=== PATIENT | female | born 1935 | race Caucasian/White ===

== ENCOUNTER 2021-01-04 10:36 | Emergency (ER) | payer MEDICARE ==
[~2021-01-04] VITALS: Ht 165.1 cm; Wt 72.7 kg
[~2021-01-04 10:36] MED LIST: AMLO2.5T2 PO; ASPI-529 PO; ATOR40TA7 PO; CHOL10002 PO; LEVO112T25 PO; LOSA50TA3 PO; MULT-1074 PO; OM-31CAP9 PO; VITAMIN E PO
--- NOTE | 2021-01-04 11:01 | NUR ---
CALL DAUGHTER CHARLOTTE FOR RIDE HOME: [phone]
[2021-01-04 12:08] LABS: BASOPHILS # (AUTO) 0.1 X10'3 (0-0.2); EOSINOPHILS # (AUTO) 0.1 X10'3 (0-0.9); HEMOGLOBIN 13.9 g/dl (12.0-16.0); LYMPHOCYTES # (AUTO) 2.1 X10'3 (1.1-4.8); NEUTROPHILS # (AUTO) 5.9 X10'3 (1.8-7.7)
[2021-01-04 12:10] LABS: BASOPHILS % (AUTO) 1.2 % (0-1); EOSINOPHILS % (AUTO) 0.9 % (0-6); HEMATOCRIT 41.7 % (35.0-45.0); MEAN CORPUSCULAR HGB CONC 33.4 g/dL (33.0-36.5); MEAN CORPUSCULAR VOLUME 92.6 FL (78-98); MEAN PLATELET VOLUME 11.8 FL (7.4-10.4); MONOCYTES # (AUTO) 0.6 X10'3 (0-0.9); MONOCYTES % (AUTO) 7.2 % (2-12); NEUTROPHILS % (AUTO) 66.7 % (42-75); PLATELET COUNT 185 X10'3 (140-440); RED CELL DISTRIBUTION WIDTH 13.2 % (11.5-14.5); WHITE BLOOD COUNT 8.9 X10'3 (4.5-11.0)
[2021-01-04 12:15] LABS: ALANINE AMINOTRANSFERASE 31 U/L (12-78); ALBUMIN 3.9 G/DL (3.4-5.0); ALKALINE PHOSPHATASE 66 IU/L (46-116); ANION GAP 11 (8-16); ASPARTATE AMINO TRANSFERASE 12 U/L (10-37); BILIRUBIN,TOTAL 0.4 MG/DL (0.1-1.0); BLOOD UREA NITROGEN 17 MG/DL (7-18); BUN/CREATININE RATIO 22.4 (6.6-38.0); CALCIUM 9.1 MG/DL (8.5-10.1); CHLORIDE 103 MMOL/L (99-107); CREATININE 0.76 MG/DL (0.40-0.90); GLUCOSE 227 MG/DL (70-104); SODIUM 141 MMOL/L (135-145); TOTAL CARBON DIOXIDE 27.3 MMOL/L (24-32); TOTAL PROTEIN 7.8 G/DL (6.4-8.2); eGFR 72 ML/MIN
[2021-01-04 12:51] VITALS: BP 168/86
--- NOTE | 2021-01-04 16:47 | NUR ---
PROVIDER NOTIFIED THAT PT IS WANTING TO LEAVE.
== END 2021-01-05 01:00 | disposition left against medical advice (07) ==
LOC: ER 10:36
DX: S09.90XA Unspecified injury of head, initial encounter (principal); R07.89 Other chest pain; W06.XXXA Fall from bed, initial encounter; Y93.89 Activity, other specified; Y92.013 Bedroom of single-family (private) house as the place of occurrence of the external cause; M54.89 Other dorsalgia
CPT/HCPCS: 36415; 70450; 71045; 72125; 80053; 83880; 84484; 85025; 93005

== ENCOUNTER 2021-01-29 09:26 | Day surgery (SDC) | payer MEDICARE ==
[2021-01-28 11:01] LABS: BASOPHILS # (AUTO) 0.1 X10'3 (0-0.2); EOSINOPHILS # (AUTO) 0.1 X10'3 (0-0.9); EOSINOPHILS % (AUTO) 1.3 % (0-6); HEMATOCRIT 40.8 % (35.0-45.0); HEMOGLOBIN 13.6 g/dl (12.0-16.0); LYMPHOCYTES % (AUTO) 29.1 % (21-51); MEAN CORPUSCULAR HEMOGLOBIN 31.4 PG (27.0-31.0); MEAN CORPUSCULAR HGB CONC 33.3 g/dL (33.0-36.5); MEAN CORPUSCULAR VOLUME 94.1 FL (78-98); MEAN PLATELET VOLUME 10.9 FL (7.4-10.4); MONOCYTES # (AUTO) 0.4 X10'3 (0-0.9); NEUTROPHILS # (AUTO) 4.2 X10'3 (1.8-7.7); NEUTROPHILS % (AUTO) 62.6 % (42-75); PLATELET COUNT 180 X10'3 (140-440); RED BLOOD COUNT 4.33 X10'6 (4.20-5.60); RED CELL DISTRIBUTION WIDTH 13.6 % (11.5-14.5); WHITE BLOOD COUNT 6.7 X10'3 (4.5-11.0)
[2021-01-28 11:11] LABS: ALBUMIN 3.9 G/DL (3.4-5.0); ANION GAP 11 (8-16); BLOOD UREA NITROGEN 10 MG/DL (7-18); BUN/CREATININE RATIO 17.9 (6.6-38.0); CALCIUM 9.1 MG/DL (8.5-10.1); CHLORIDE 105 MMOL/L (99-107); CREATININE 0.56 MG/DL (0.40-0.90); GLUCOSE 186 MG/DL (70-104); SODIUM 142 MMOL/L (135-145); TOTAL CARBON DIOXIDE 26.1 MMOL/L (24-32); eGFR > 90 ML/MIN
[2021-01-28 11:13] LABS: PARTIAL THROMBOPLASTIN TIME 27 SECONDS (22-32)
[2021-01-28 12:44] LABS: LARGE PLATELETS FEW; PLATELET ESTIMATE NORMAL
[2021-01-28 12:45] LABS: ELLIPTOCYTES FEW
[2021-01-28 12:46] LABS: ANISOCYTOSIS FEW
[~2021-01-29] VITALS: Ht 162.6 cm; Wt 75.4 kg
[2021-01-29] VITALS (12 sets, daily range): BP systolic 136–175; BP diastolic 64–82
[2021-01-29] MEDS ORDERED: normal saline 1,000 ML IV SCH (09:45)
[2021-01-29] MEDS ORDERED: diphenhydrAMINE 25mg capsule PO PRN (09:45)
[2021-01-29] MEDS ORDERED: LORazepam 0.5 MG tablet PO PRN (09:45)
[2021-01-29] MEDS ORDERED: LIDOcaine/PRILOcaine 5gm cream TP ONE (09:50)
[2021-01-29] MEDS ORDERED: METF-900 PO (09:59)
[2021-01-29] MEDS ORDERED: hydrALAZINE 20mg/ml inj. IV ONE ×2 (10:00→10:15)
[2021-01-29] MEDS ORDERED: EZET10TA48 PO (10:12)
[2021-01-29] MEDS ORDERED: LOSA50TA64 PO (10:12)
[2021-01-29] MEDS ORDERED: SITA25TA3 PO (10:12)
[2021-01-29] MEDS ORDERED: iohexol 350MG/ML 100ml bottle IV ONE (12:12)
[2021-01-29] MEDS ORDERED: iohexol 350 MG/ML 50ML vial IV ONE ×2 (12:12→13:32)
[2021-01-29] MEDS ORDERED: LIDOcaine 1% (10mg/ml)w/preservative injection 20ml MDV ONE (12:12)
[2021-01-29] MEDS ORDERED: heparin 1,000unit/ml 10ml vial 10 ML ONE (12:12)
[2021-01-29] MEDS ORDERED: verapamil 2.5 mg/ml inj IV ONE (12:12)
[2021-01-29] MEDS ORDERED: nitroGLYCERIN-Tridil 50MG/D5W 250 ML IV ONE (12:12)
[2021-01-29] MEDS ORDERED: fentaNYL/PF 50MCG/1 ML 2ML syringe ONE ×2 (12:12→13:52)
[2021-01-29] MEDS ORDERED: midazolam 1 mg/ML 2ml injection ONE (12:12)
[2021-01-29 13:39] LABS: ISTAT HGB ART 12.9 g/dl (12.0-16.0); ISTAT Hct ART 38 %PCV (35-48); ISTAT O2 SATURATION ARTERIAL 97 % (95-98); ISTAT SOURCE ART
[2021-01-29 15:22] LABS: ISTAT Hct MIX 38 %PCV (35-48); ISTAT O2 SATURATION MIX VENOUS 75 % (60-80); ISTAT SOURCE VEN
== END 2021-01-29 19:45 | disposition home or self-care (01) ==
LOC: SSTAY O 09:26
PROVIDERS: ATTEND Internal Medicine Cardiovascular Disease
DX: R06.09 Other forms of dyspnea (principal); R06.02 Shortness of breath; I25.10 Atherosclerotic heart disease of native coronary artery without angina pectoris; I35.0 Nonrheumatic aortic (valve) stenosis; E78.5 Hyperlipidemia, unspecified; I10 Essential (primary) hypertension; E11.9 Type 2 diabetes mellitus without complications; M19.90 Unspecified osteoarthritis, unspecified site; E03.9 Hypothyroidism, unspecified; Z88.0 Allergy status to penicillin; Z79.01 Long term (current) use of anticoagulants; Z79.899 Other long term (current) drug therapy; Z86.73 Personal history of transient ischemic attack (TIA), and cerebral infarction without residual deficits
CPT/HCPCS: 36415; 76937; 80048; 82803; 82948; 85014; 85025; 85610; 85730; 93005; 93460; 93567; 99152; 99153; C1760; C1769; C1894; J0360; J1644; J2001; J2250; J3010; Q0163; Q9967; 85008; A5120; A6258; C1751; J3490

== ENCOUNTER 2021-02-12 10:22 | Outpatient (CLI) | payer MEDICARE ==
[~2021-02-12 10:22] MED LIST changes: -ATOR40TA7 PO; +EZET10TA48 PO; -LOSA50TA3 PO; +LOSA50TA64 PO; +METF-900 PO; -MULT-1074 PO; -OM-31CAP9 PO; +SITA25TA3 PO
[2021-02-12] MEDS ORDERED: IODIXANOL 320 MG/ML INFUS..BTL 100ML IV ONE (11:27)
[2021-02-12] MEDS ORDERED: IODIXANOL 320 MG/ML INFUS..BTL 50ML IV ONE (11:27)
== END 2021-02-12 23:59 | disposition home or self-care (01) ==
LOC: RAD 10:22
PROVIDERS: ATTEND Internal Medicine Cardiovascular Disease
DX: I65.23 Occlusion and stenosis of bilateral carotid arteries (principal); I70.209 Unspecified atherosclerosis of native arteries of extremities, unspecified extremity; M47.819 Spondylosis without myelopathy or radiculopathy, site unspecified; K59.00 Constipation, unspecified; I87.8 Other specified disorders of veins; I70.1 Atherosclerosis of renal artery; I25.10 Atherosclerotic heart disease of native coronary artery without angina pectoris; Z20.822 Contact with and (suspected) exposure to COVID-19
CPT/HCPCS: 71046; 71275; 74174; 87635; 93880; 94010; 94727; 94729; C9803; Q9967

== ENCOUNTER 2021-08-14 06:30 | Inpatient (IN) | payer MEDICARE ==
[2021-08-08 15:03] LABS: CLARITY,URINE CLEAR (Clear); COLOR,URINE YELLOW (Yellow); GLUCOSE, URINE 250 mg/dl (Neg); KETONES,URINE TRACE mg/dl (Neg); LEUKOCYTE ESTERASE ,URINE NEGATIVE (Neg); NITRITES, URINE NEGATIVE (Neg); OCCULT BLOOD,URINE NEGATIVE (Neg); PROTEIN,URINE NEGATIVE (Neg); UROBILINOGEN,URINE 0.2 E.U/dL (0.2-1.0)
[2021-08-08 15:06] LABS: BASOPHILS # (AUTO) 0.1 X10'3 (0-0.2); BASOPHILS % (AUTO) 1.5 % (0-1); EOSINOPHILS # (AUTO) 0.2 X10'3 (0-0.9); EOSINOPHILS % (AUTO) 2.9 % (0-6); LYMPHOCYTES # (AUTO) 2.1 X10'3 (1.1-4.8); LYMPHOCYTES % (AUTO) 32.2 % (21-51); MEAN CORPUSCULAR HEMOGLOBIN 30.9 PG (27.0-31.0); MEAN CORPUSCULAR HGB CONC 33.6 g/dL (33.0-36.5); MEAN CORPUSCULAR VOLUME 91.8 FL (78-98); MEAN PLATELET VOLUME 11.4 FL (7.4-10.4); MONOCYTES # (AUTO) 0.3 X10'3 (0-0.9); MONOCYTES % (AUTO) 5.3 % (2-12); NEUTROPHILS # (AUTO) 3.8 X10'3 (1.8-7.7); NEUTROPHILS % (AUTO) 58.1 % (42-75); PRE OP HEMATOCRIT 40.6 % (35.0-45.0); PRE OP HEMOGLOBIN 13.7 g/dL (12.0-16.0); PRE OP PLATELET COUNT 187 X10'3 (140-440); RED BLOOD COUNT 4.43 X10'6 (4.20-5.60)
[2021-08-08 15:07] LABS: UA COLLECTION TYPE CLN CATCH MIDSTREAM
[2021-08-08 15:08] LABS: PRE OP INR 1.1 INR; PRE OP PROTIME 11.3 SECONDS (9.0-12.0)
[2021-08-08 15:18] LABS: ALBUMIN 3.7 G/DL (3.4-5.0); ALBUMIN/GLOBULIN RATIO 1.1 (1.1-1.5); ALKALINE PHOSPHATASE 75 IU/L (46-116); BLOOD UREA NITROGEN 13 MG/DL (7-18); BUN/CREATININE RATIO 23.6 (6.6-38.0); CALCIUM 9.4 MG/DL (8.5-10.1); CHLORIDE 103 MMOL/L (99-107); CREATININE 0.55 MG/DL (0.40-0.90); PRE OP ALT 26 U/L (30-65); PRE OP ANION GAP 9 (8-16); PRE OP AST 17 U/L (10-37); PRE OP BILIRUB, TOTAL 0.3 MG/DL (0.0-1.0); PRE OP POTASSIUM 3.9 MMOL/L (3.4-5.1); PRE OP SODIUM 141 MMOL/L (135-145); TOTAL CARBON DIOXIDE 28.6 MMOL/L (24-32); TOTAL PROTEIN 7.1 G/DL (6.4-8.2); eGFR > 90 ML/MIN
[2021-08-08 15:25] LABS: PRE OP GLUCOSE 211 MG/DL (70-104)
[2021-08-08 15:39] LABS: LARGE PLATELETS FEW; PLATELET ESTIMATE NORMAL
[2021-08-08 22:03] LABS: HEMOGLOBIN A1C 9.8 % (4.5-6.2)
[2021-08-14] VITALS (19 sets, daily range): BP systolic 83–168; BP diastolic 14–74
[~2021-08-14] VITALS: Ht 165.1 cm; Wt 76.0 kg
[2021-08-14] MEDS: nitroPRUSSIDE (NIPRIDE) (200MCG/ML) 100ML Drip IV SCH (05:30)
[2021-08-14] MEDS: phenylephrine 50 MG in NS 250ml IVPB IV SCH (05:30)
[~2021-08-14 06:30] MED LIST changes: +GLIP2.5T3 PO; +GLUCOSAMINE/MSM; +MULT-1085 PO; -SITA25TA3 PO; +aspirin 325mg tablet PO ONE; +famotidine 20mg tablet PO ONE; +ondansetron/PF 4mg/2ml inj IV PRN; +ringers solution, lacted 1,000 ML IV SCH; +vancomycin/NS 1 GM in NS 250 ML IV ONE
[2021-08-14] MEDS ORDERED: protamine sulfate 10mg/ml inj. ONE (06:39)
[2021-08-14] MEDS ORDERED: ACET-2319 PO (07:40)
[2021-08-14] MEDS ORDERED: iohexol 350 MG/ML 50ML vial IV ONE (08:39)
[2021-08-14] MEDS ORDERED: heparin 1,000 UNITS/NS 500ml 1,500 ML ONE (08:39)
[2021-08-14] MEDS ORDERED: LIDOcaine 1% (10mg/ml)w/preservative inj. 20ml MDV ONE ×2 (08:39→08:40)
[2021-08-14] MEDS ORDERED: iohexol 350MG/ML 100ml bottle IV ONE (08:39)
[2021-08-14] MEDS ORDERED: midazolam 1 mg/ML 2ml injection ONE (08:55)
[2021-08-14] MEDS ORDERED: FENTANYL CITRATE/PF 50 MCG/1 ML VIAL ONE (08:55)
[2021-08-14] MEDS ORDERED: heparin 1,000unit/ml 10ml vial 10 ML ONE (09:55)
[2021-08-14] MEDS ORDERED: labetalol 20mg/4ml (5mg/ml) syringe IV ONE (09:55)
[2021-08-14] MEDS ORDERED: hydrALAZINE 20mg/ml inj. IV ONE (09:55)
[2021-08-14] MEDS ORDERED: propofol inj 20 ML IV ONE (09:55)
[2021-08-14] MEDS ORDERED: LIDOcaine 1%/PF 5ML 10 MG/ML VIAL ONE (09:55)
--- NOTE | 2021-08-14 10:03 | NUR ---
Received from OR via BED, accompanied by Anesthesiologist DR DESHPANDE and report given by Anesthesiologist AND DEADENER. PT DROWSY, DENIES PAIN. BILAT GROINS W/BETO SANCHEZ CDI, GROIN SITES SOFT, NO OOZING OR HEMATOMA NOTED. PT NEURO CHECKS INTACT. BILAT PEDAL/TIBIAL PULSES DOPPLER QUALITY, TOES/FEET PWD. Addendum: 08/14/21 at 1057 by Amber Chow RN Amended: Links added.
[2021-08-14] MEDS ORDERED: diphenhydrAMINE 25mg capsule PO PRN (10:20)
[2021-08-14] MEDS ORDERED: acetaminophen 325mg tablet PO PRN (10:20)
[2021-08-14] MEDS ORDERED: proCHLORperazine 10 MG/2 ml inj IV PRN (10:20)
[2021-08-14] MEDS ORDERED: ALPRAZolam 0.25mg tablet PO PRN (10:20)
[2021-08-14] MEDS ORDERED: pantoprazole 40mg Tablet.DR PO PRN (10:20)
[2021-08-14] MEDS ORDERED: glucagon, human recombinant 1mg kit SUBCUT PRN (10:20)
[2021-08-14] MEDS ORDERED: DEXTROSE 15 GM of carb/4 tabs (each vial/BOTTLE has 4 tablets) PO PRN ×2 (10:20)
[2021-08-14] MEDS ORDERED: docusate sod 100mg capsule PO PRN (10:20)
[2021-08-14] MEDS ORDERED: ondansetron/PF 4mg/2ml inj IV PRN (10:20)
[2021-08-14] MEDS ORDERED: MESSAGE TO PHARMACY PO ONE (10:20)
[2021-08-14] MEDS ORDERED: insulin regular, human U-100 3ml vial - multi-dose SQ SCH (10:20)
[2021-08-14] MEDS ORDERED: insulin Lispro (HumaLOG) vial - multi-dose SQ SCH (10:20)
[2021-08-14] MEDS ORDERED: hydrALAZINE 20mg/ml inj. IV PRN (10:20)
[2021-08-14] MEDS ORDERED: labetalol 20mg/4ml (5mg/ml) syringe IV PRN (10:20)
[2021-08-14] MEDS ORDERED: dextrose 50%-water 50ml dispensing syringe IV PRN ×2 (10:20)
--- NOTE | 2021-08-14 10:30 | NUR ---
DR LEGGETT IN TO SEE PT, INSTRUCTED TO USE CUFF PRESSURES AND NOT ARTERIAL PRESSURE. Addendum: 08/14/21 at 1058 by Amber Chow RN Amended: Links added.
[2021-08-14] MEDS ORDERED: GLIP5TAB13 PO (10:50)
[2021-08-14] MEDS ORDERED: GLUC-95 PO (10:50)
[2021-08-14] MEDS ORDERED: VITE1000C PO (10:50)
--- NOTE | 2021-08-14 11:35 | NUR ---
LEFT RADIAL ART LINE D/CD, HEMOSTASIS ACHIEVED, 2'S APPLIED W/COBAN WRAP. Addendum: 08/14/21 at 1158 by Amber Chow RN Amended: Links added.
[2021-08-14] MEDS: normal saline 1000ml 1,000 ML IV SCH ×2 (11:45→19:34)
[2021-08-14] MEDS: losartan 50mg tablet PO SCH (11:58)
[2021-08-14] MEDS: amLODIPine 5mg tablet PO SCH (11:58)
--- NOTE | 2021-08-14 12:23 | NUR ---
PTS BP MEDS GIVEN PRIOR TO TRANSFERING PT TO ROOM PRE DR LEGGETT. Report called to receiving nurse. Transferred via BED ON CM. 2 BAGS OF Belongings WITH CANE SENT W/PT TO ROOM [facility]. RECEIVING RN AT BEDSIDE TO RECEIVE PT, REASSESSED [facility] W/RECEIVING RN, NO CHANGES NOTED. PT REMAINS COMFORTABLE W/O C/O. PTS DAUGHTERS NOTIFIED OF PTS TRANSFER. Special Issues communicated to receiving nurse. YES. Addendum: 08/14/21 at 1244 by Amber Chow RN Amended: Links added.
[2021-08-14] MEDS: sod chloride 0.9% 10ml flush syringe IV SCH (16:38)
--- NOTE | 2021-08-14 18:00 | NUR ---
Patient in room PCU 3013. I have received report from ELSIE ROLAND and had the opportunity to ask questions and assume patient care.
--- NOTE | 2021-08-14 18:15 | NUR ---
Problems reprioritized. Patient report given, questions answered & plan of care reviewed with Gila.
[2021-08-14] MEDS: vancomycin/NS 1 GM ADD-VANTAGE 250 ML IV SCH (19:32)
[2021-08-14] MEDS ORDERED: traZODone 50mg tablet PO SCH (20:00)
[2021-08-14] MEDS ORDERED: insulin glargine (Lantus) pen - multi-dose SQ SCH (21:00)
[2021-08-15] MEDS: nitroPRUSSIDE (NIPRIDE) (200MCG/ML) 100ML Drip IV SCH (01:07)
[2021-08-15 02:00] VITALS: BP 152/88
[2021-08-15] MEDS: phenylephrine 50 MG in NS 250ml IVPB IV SCH (06:01)
--- NOTE | 2021-08-15 06:03 | NUR ---
Problems reprioritized. Patient report given, questions answered & plan of care reviewed with ELSIE ROLAND.
[2021-08-15 06:48] LABS: BASOPHILS % (AUTO) 0.5 % (0-1); EOSINOPHILS # (AUTO) 0.1 X10'3 (0-0.9); EOSINOPHILS % (AUTO) 1.1 % (0-6); HEMATOCRIT 36.2 % (35.0-45.0); HEMOGLOBIN 12.2 g/dl (12.0-16.0); LYMPHOCYTES # (AUTO) 1.5 X10'3 (1.1-4.8); LYMPHOCYTES % (AUTO) 19.3 % (21-51); MEAN CORPUSCULAR HEMOGLOBIN 30.7 PG (27.0-31.0); MEAN CORPUSCULAR HGB CONC 33.7 g/dL (33.0-36.5); MEAN CORPUSCULAR VOLUME 91.1 FL (78-98); MEAN PLATELET VOLUME 11.1 FL (7.4-10.4); MONOCYTES # (AUTO) 0.7 X10'3 (0-0.9); MONOCYTES % (AUTO) 8.5 % (2-12); NEUTROPHILS # (AUTO) 5.5 X10'3 (1.8-7.7); NEUTROPHILS % (AUTO) 70.6 % (42-75); PLATELET COUNT 132 X10'3 (140-440); RED BLOOD COUNT 3.97 X10'6 (4.20-5.60); RED CELL DISTRIBUTION WIDTH 13.3 % (11.5-14.5); WHITE BLOOD COUNT 7.8 X10'3 (4.5-11.0)
[2021-08-15 07:16] LABS: LARGE PLATELETS FEW; PLATELET ESTIMATE DECREASED; POIKILOCYTOSIS FEW
[2021-08-15 08:00] LABS: ALANINE AMINOTRANSFERASE 39 U/L (12-78); ALBUMIN 3.3 G/DL (3.4-5.0); ALBUMIN/GLOBULIN RATIO 1.1 (1.1-1.5); ALKALINE PHOSPHATASE 63 IU/L (46-116); ANION GAP 10 (8-16); ASPARTATE AMINO TRANSFERASE 27 U/L (10-37); BILIRUBIN,TOTAL 0.6 MG/DL (0.1-1.0); BLOOD UREA NITROGEN 11 MG/DL (7-18); BUN/CREATININE RATIO 32.4 (6.6-38.0); CALCIUM 8.8 MG/DL (8.5-10.1); CHLORIDE 107 MMOL/L (99-107); CREATININE 0.34 MG/DL (0.40-0.90); GLUCOSE 190 MG/DL (70-104); MAGNESIUM 1.7 MG/DL (1.5-2.4); POTASSIUM 3.7 MMOL/L (3.5-5.1); SODIUM 143 MMOL/L (135-145); TOTAL CARBON DIOXIDE 26.1 MMOL/L (24-32); TOTAL PROTEIN 6.3 G/DL (6.4-8.2); eGFR > 90 ML/MIN
[2021-08-15] MEDS ORDERED: ezetimibe 10mg tablet PO SCH (08:00)
[2021-08-15] MEDS ORDERED: levoTHYROXINE 112mcg tablet PO SCH (08:00)
[2021-08-15] MEDS ORDERED: multivitamins, therapeutics tablet PO SCH (08:00)
[2021-08-15] MEDS ORDERED: aspirin 81mg, enteric-coated 1 TAB TABLET.DR PO SCH (08:00)
[2021-08-15] MEDS: vancomycin/NS 1 GM ADD-VANTAGE 250 ML IV SCH (08:15)
[2021-08-15] MEDS: normal saline 1000ml 1,000 ML IV SCH (08:17)
[2021-08-15 08:18] VITALS: BP_SYST 136
[2021-08-15] MEDS: amLODIPine 5mg tablet PO SCH (08:18)
[2021-08-15] MEDS: losartan 50mg tablet PO SCH (08:18)
[2021-08-15] MEDS: sod chloride 0.9% 10ml flush syringe IV SCH ×2 (08:19)
--- NOTE | 2021-08-15 13:22 | NUR ---
Pt been discharged. IV removed. Telemetry box removed. Went over all discharged paperwork. All discharged questions have been answered.
== END 2021-08-15 13:00 | disposition home or self-care (01) | DRG 267 ==
LOC: PAS IN 06:30 → PCU 3S 12:23
PROVIDERS: ADMIT Internal Medicine Cardiovascular Disease; ATTEND Internal Medicine Cardiovascular Disease
PROC: B41D1ZZ Fluoroscopy of Aorta and Bilateral Lower Extremity Arteries using Low Osmolar Contrast (ICD-10-PCS; 2021-08-14)
PROC: X2RF332 Replacement of Aortic Valve using Zooplastic Tissue, Rapid Deployment Technique, Percutaneous Approach, New Technology Group 2 (ICD-10-PCS; principal; 2021-08-14 08:55)
DX: I35.0 Nonrheumatic aortic (valve) stenosis (principal); Z00.6 Encounter for examination for normal comparison and control in clinical research program; E11.9 Type 2 diabetes mellitus without complications; E03.9 Hypothyroidism, unspecified; E78.5 Hyperlipidemia, unspecified; I10 Essential (primary) hypertension; Z86.73 Personal history of transient ischemic attack (TIA), and cerebral infarction without residual deficits
CPT/HCPCS: 33361; 36415; 71045; 71046; 76937; 80053; 81003; 82948; 83036; 83735; 83880; 84443; 85008; 85025; 85347; 85610; 85730; 86885; 86900; 86901; 86920; 87081; 93005; 93308; A4618; A6258; A6449; C1760; C1769; C1894; G0378; J0360; J1644; J1815; J2250; J2370; J2704; J2720; J3010; J3370; J3490; J7030; J7040; J7050; J7120; Q9967; U0003; U0005

== ENCOUNTER 2021-09-16 11:00 | Outpatient (CLI) | payer MEDICARE, MEDICAID ==
[~2021-09-16 11:00] MED LIST changes: -GLIP2.5T3 PO; +GLIP5TAB13 PO; +GLUC-95 PO; -GLUCOSAMINE/MSM; -VITAMIN E PO; +VITE1000C PO; -aspirin 325mg tablet PO ONE; -famotidine 20mg tablet PO ONE; -ondansetron/PF 4mg/2ml inj IV PRN; -ringers solution, lacted 1,000 ML IV SCH; -vancomycin/NS 1 GM in NS 250 ML IV ONE
== END 2021-09-16 23:59 | disposition home or self-care (01) ==
LOC: CARD DIAG 11:00
PROVIDERS: ATTEND Internal Medicine Cardiovascular Disease
DX: I34.0 Nonrheumatic mitral (valve) insufficiency (principal); Z95.2 Presence of prosthetic heart valve; Z48.812 Encounter for surgical aftercare following surgery on the circulatory system
CPT/HCPCS: 93005; 93308

== ENCOUNTER 2021-09-18 14:38 | Outpatient (CLI) | payer MEDICARE ==
[~2021-09-18] VITALS: Ht 165.1 cm; Wt 73.3 kg
[2021-09-18 16:51] VITALS: BP 170/66
--- NOTE | 2021-09-18 17:17 | NUR ---
Patient and her daughter were seen today for TAVR follow-up with Dr. Cross. KCQ12 completed. Walk test completed. Vital signs measured. Echo and EKG reviewed with patient along with current condition of patients symptoms.
== END 2021-09-18 23:59 | disposition home or self-care (01) ==
LOC: TAVR 14:38
PROVIDERS: ATTEND Internal Medicine Cardiovascular Disease
DX: Z48.812 Encounter for surgical aftercare following surgery on the circulatory system (principal); Z95.2 Presence of prosthetic heart valve
CPT/HCPCS: 93005

== ENCOUNTER 2022-01-19 10:43 | Emergency (ER) | payer MEDICARE ==
[~2022-01-19] VITALS: Ht 165.1 cm; Wt 86.4 kg
[2022-01-19] MEDS ORDERED: normal saline 1000ML IV soln IVB ONE (12:30)
[2022-01-19 14:13] LABS: BASOPHILS # (AUTO) 0.1 X10'3 (0-0.2); BASOPHILS % (AUTO) 0.5 % (0-1); EOSINOPHILS % (AUTO) 0.2 % (0-6); HEMATOCRIT 39.9 % (35.0-45.0); HEMOGLOBIN 13.4 g/dl (12.0-16.0); LYMPHOCYTES # (AUTO) 1.7 X10'3 (1.1-4.8); MEAN CORPUSCULAR HEMOGLOBIN 30.8 PG (27.0-31.0); MEAN CORPUSCULAR HGB CONC 33.5 g/dL (33.0-36.5); MEAN CORPUSCULAR VOLUME 92.1 FL (78-98); MEAN PLATELET VOLUME 10.6 FL (7.4-10.4); MONOCYTES # (AUTO) 0.8 X10'3 (0-0.9); MONOCYTES % (AUTO) 5.9 % (2-12); NEUTROPHILS # (AUTO) 10.4 X10'3 (1.8-7.7); NEUTROPHILS % (AUTO) 80.4 % (42-75); PLATELET COUNT 136 X10'3 (140-440); RED BLOOD COUNT 4.33 X10'6 (4.20-5.60); WHITE BLOOD COUNT 12.9 X10'3 (4.5-11.0)
[2022-01-19 14:25] LABS: ALANINE AMINOTRANSFERASE 29 U/L (12-78); ALBUMIN 3.7 G/DL (3.4-5.0); ALBUMIN/GLOBULIN RATIO 1.1 (1.1-1.5); ALKALINE PHOSPHATASE 60 IU/L (46-116); ANION GAP 7 (8-16); ASPARTATE AMINO TRANSFERASE 26 U/L (10-37); BILIRUBIN,TOTAL 0.4 MG/DL (0.1-1.0); BLOOD UREA NITROGEN 16 MG/DL (7-18); BUN/CREATININE RATIO 31.4 (6.6-38.0); CALCIUM 8.9 MG/DL (8.5-10.1); CHLORIDE 104 MMOL/L (99-107); CREATININE 0.51 MG/DL (0.40-0.90); GLUCOSE 164 MG/DL (70-104); LIPASE 58 U/L (73-393); POTASSIUM 3.9 MMOL/L (3.5-5.1); SODIUM 140 MMOL/L (135-145); TOTAL CARBON DIOXIDE 28.6 MMOL/L (24-32); TOTAL PROTEIN 7.2 G/DL (6.4-8.2); eGFR > 90 ML/MIN
[2022-01-19 14:53] LABS: CLARITY,URINE SLIGHTLY CLOUDY (Clear); COLOR,URINE YELLOW (Yellow); GLUCOSE, URINE NEGATIVE (Neg); KETONES,URINE TRACE mg/dl (Neg); LEUKOCYTE ESTERASE ,URINE NEGATIVE (Neg); NITRITES, URINE NEGATIVE (Neg); OCCULT BLOOD,URINE NEGATIVE (Neg); PROTEIN,URINE NEGATIVE (Neg); UROBILINOGEN,URINE 0.2 E.U/dL (0.2-1.0)
[2022-01-19 15:03] LABS: UA COLLECTION TYPE CLN CATCH MIDSTREAM
[2022-01-19 15:07] LABS: SQUAMOUS EPITHELIAL CELL,UR MANY /LPF (FEW)
[2022-01-19 15:08] LABS: MUCUS STRANDS MODERATE /LPF (Neg); TRANSITIONAL EPI CELLS,URINE FEW /HPF
[2022-01-19 15:10] LABS: RENAL CELLS, URINE FEW /HPF
[2022-01-19 15:18] LABS: BACTERIA,URINE 2+ /HPF (Neg); RBC,URINE 0-2 /HPF (0-2)
[2022-01-19] MEDS ORDERED: normal saline 500ML IV soln IV ONE (15:40)
[2022-01-19] MEDS ORDERED: CHOL200042 PO (16:10)
[2022-01-19] MEDS ORDERED: SITA25TA3 PO (16:10)
[2022-01-19] MEDS ORDERED: AMLO5TAB16 PO (16:10)
[2022-01-19] MEDS ORDERED: DICL100G30 TOP (16:10)
[2022-01-19] MEDS ORDERED: ESTR1VAG VG (16:10)
[2022-01-19] MEDS ORDERED: ACET-1008 PO (16:12)
[2022-01-19 18:06] VITALS: BP 167/67
== END 2022-01-19 18:09 | disposition home or self-care (01) ==
LOC: ER 10:44
DX: R53.1 Weakness (principal); I11.9 Hypertensive heart disease without heart failure; I10 Essential (primary) hypertension; E11.9 Type 2 diabetes mellitus without complications; E03.9 Hypothyroidism, unspecified; Z88.0 Allergy status to penicillin; Z79.899 Other long term (current) drug therapy; Z79.82 Long term (current) use of aspirin; Z88.1 Allergy status to other antibiotic agents
CPT/HCPCS: 36415; 71045; 80053; 81001; 82948; 83690; 85025; 93005; 99285; J7040

== ENCOUNTER 2022-09-02 09:35 | Outpatient (CLI) | payer MEDICARE, MEDICAID ==
[~2022-09-02 09:35] MED LIST changes: +ACET-1008 PO; -AMLO2.5T2 PO; +AMLO5TAB16 PO; -CHOL10002 PO; +CHOL200042 PO; +DICL100G30 TOP; +ESTR1VAG VG; -GLUC-95 PO; +SITA25TA3 PO
== END 2022-09-02 23:59 | disposition home or self-care (01) ==
LOC: CARD DIAG 09:35
PROVIDERS: ATTEND Internal Medicine Cardiovascular Disease
DX: I08.0 Rheumatic disorders of both mitral and aortic valves (principal); Z95.2 Presence of prosthetic heart valve
CPT/HCPCS: 93306

== ENCOUNTER 2023-05-28 17:42 | Emergency (ER) | payer MEDICARE, MEDICAID ==
[~2023-05-28] VITALS: Ht 165.1 cm; Wt 77.3 kg
[~2023-05-28 17:42] MED LIST changes: -DICL100G30 TOP; -ESTR1VAG VG; +ESTR1VAG10 VG; -GLIP5TAB13 PO; +GLIP5TAB23 PO; +VITA-268 PO
[2023-05-28 18:23] VITALS: BP 187/79; PULSE 85; RESP 18; TEMP 98; O2SAT 96
== END 2023-05-28 18:56 | disposition home or self-care (01) ==
LOC: ER 17:43
DX: D23.0 Other benign neoplasm of skin of lip (principal); K13.0 Diseases of lips; I11.0 Hypertensive heart disease with heart failure; E03.9 Hypothyroidism, unspecified; E11.9 Type 2 diabetes mellitus without complications; Z88.0 Allergy status to penicillin; Z79.899 Other long term (current) drug therapy
CPT/HCPCS: 99283